=== PATIENT | male | born 1985 | race Hispanic/Latino ===

== ENCOUNTER 2022-02-18 15:29 | Emergency (ER) | payer BC ==
[~2022-02-18] VITALS: Ht 180.3 cm; Wt 85.4 kg
[2022-02-18] MEDS ORDERED: XANAX0.5 MG PO (15:48)
[2022-02-18] MEDS ORDERED: SODIUM CHLORIDE 0.9% 1000ML 1,000 ML IV STA (15:52)
[2022-02-18] MEDS ORDERED: ONDANSETRON HCL INJ 2MG/ML 2ML 2 MG/ML VIAL IV ONE (16:00)
[2022-02-18] MEDS ORDERED: DIAZEPAM INJ 5 MG/ML 2 ML IV ONE (16:00)
[2022-02-18] MEDS ORDERED: DIPHENHYDRAMINE HCL INJ 50 MG/ML VIAL IV ONE (16:00)
[2022-02-18] MEDS ORDERED: FAMOTIDINE 20 MG/2 ML VIAL IV ONE ×2 (16:00→16:18)
[2022-02-18] MEDS ORDERED: DIPHENHYDRAMINE HCL INJ 50 MG/ML VIAL ONE (16:17)
[2022-02-18] MEDS ORDERED: ONDANSETRON HCL INJ 2MG/ML 2ML 2 MG/ML VIAL ONE (16:17)
[2022-02-18] MEDS ORDERED: SODIUM CHLORIDE 0.9% 1000ML 1,000 ML ONE (16:18)
[2022-02-18] MEDS ORDERED: DIAZEPAM INJ 5 MG/ML 2 ML ONE (16:18)
== END 2022-02-18 17:08 | disposition home or self-care (01) ==
LOC: FSED 15:39
DX: F41.9 Anxiety disorder, unspecified (principal); F14.10 Cocaine abuse, uncomplicated; F32.A Depression, unspecified; F17.210 Nicotine dependence, cigarettes, uncomplicated
CPT/HCPCS: 80053; 80307; 81003; 85025; 96374; 96375; 99283; J1200; J2405; J3360; J7030